=== PATIENT | female | born 1965 | race Caucasian/White ===

== ENCOUNTER 2018-03-16 06:59 | Day surgery (SDC) | payer OTHER ==
[2018-03-16] MEDS ORDERED: LIDOCAINE 2% (SDV) 5 ML INJ (07:00)
[2018-03-16] MEDS ORDERED: DEXAMETHASONE 4 MG/ML 1 ML INJ ×3 (07:00→10:47)
[2018-03-16] MEDS ORDERED: CEFAZOLIN 1 GM INJ (07:00)
[2018-03-16] MEDS ORDERED: METOCLOPRAMIDE 10 MG INJ (07:00)
[2018-03-16] MEDS ORDERED: PROPOFOL 20 ML (10:06)
[2018-03-16] MEDS ORDERED: FENTAnyl 50 MCG/ML VIAL ×2 (10:07→11:42)
[2018-03-16] MEDS ORDERED: MIDAZOLAM 1 MG/ML 2 ML INJ (10:08)
[2018-03-16] MEDS ORDERED: ONDANSETRON 4 MG INJ (10:09)
[2018-03-16] MEDS: BUPIVACAINE 0.25%/EPI (MDV) 50 ML VIAL INJ (11:43)
[2018-03-16] MEDS: TRIAMCINOLONE ACET 40 MG/ML INJ (11:44)
[2018-03-16] MEDS ORDERED: FENTAnyl 50 MCG/ML VIAL IV ×2 (13:00)
[2018-03-16] MEDS ORDERED: HYDROmorphONE 1 MG/5 ML IV SYRINGE IV (13:00)
[2018-03-16] MEDS ORDERED: hydrALAzine 20 MG INJ IV (13:00)
[2018-03-16] MEDS ORDERED: MEPERIDINE 25 MG INJ IV (13:00)
[2018-03-16] MEDS ORDERED: IPRATROPIUM (NEB) 0.5 MG/2.5 ML AMP HHN (13:00)
[2018-03-16] MEDS ORDERED: DIPHENHYDRAMINE 50 MG INJ IV (13:00)
[2018-03-16] MEDS ORDERED: LABETALOL HCL 20MG INJ IV (13:00)
[2018-03-16] MEDS ORDERED: ONDANSETRON 4 MG INJ IV (13:00)
[2018-03-16] MEDS: HYDROmorphONE 1 MG/5 ML IV SYRINGE IV (13:33)
== END 2018-03-16 14:35 | disposition home or self-care (01) ==
LOC: SDS 06:59
DX: J35.01 Chronic tonsillitis (principal); E66.9 Obesity, unspecified; Z68.42 Body mass index [BMI] 45.0-49.9, adult
CPT/HCPCS: 42826; 88304